=== PATIENT | male | born 1930 | race Caucasian/White ===

== ENCOUNTER 2020-07-12 08:18 | Emergency (ER) | payer OTHER ==
--- NOTE | 2020-07-12 08:49 | RAD REPORT ---
EXAM DESCRIPTION: CT - Head Brain Wo Cont - 07/12/2020 8:36 am CLINICAL HISTORY: CVA COMPARISON: 2018 TECHNIQUE: Computed axial tomography of the head was obtained. IV contrast was not requested. All CT scans are performed using dose optimization technique as appropriate and may include automated exposure control or mA/KV adjustment according to patient size. FINDINGS: An intracranial bleed is not seen . The ventricles are normal in caliber. No extra-axial fluid collection is noted. A 4 centimeter low-density area has developed within the le ft frontal lobe compatible with an acute infarction Mild low-density areas within periventricular, deep and subcortical white matter likely represent isc hemic changes secondary to small vessel disease. Fluid within the sinuses/ mastoids is not seen. IMPRESSION: Acute left frontal lobe infarction. The exam was discussed with Dr. Bajwa in the Emergency Room 8:27 a.m. July 12, 2020
[2020-07-12 08:51] LABS: Absolute Lymphocytes (CBC) 0.5 K/uL (0.7-4.9); Basophils % 0.3 % (0-1.3); Hematocrit 38.7 % (39.6-49.0); Lymphocytes % 5.2 % (15.3-44.8); MPV 8.8 fL (7.6-11.3); RBC Red Blood Cell Count 4.08 M/uL (4.33-5.43)
--- NOTE | 2020-07-12 09:14 | RAD REPORT ---
EXAM DESCRIPTION: CTHead angio07/12/2020 9:03 am CLINICAL HISTORY: CVA COMPARISON: None TECHNIQUE: CT angiogram of the head was obtained. 3D MIPS reconstruction performed. All CT scans are performed using dose optimization technique as appropriate and may include automated exposure control or mA/KV adjustment according to patient size. FINDINGS: The basilar, internal carotid, anterior cerebral, right middle cerebral and posterior cere bral arteries are normal caliber. An aneurysm is not seen. Diminished vascularity involves the anterior branches of the left middle cerebral artery A significant stenosis is not noted. IMPRESSION: Diminished vascularity involves the anterior branches of the left middle cerebral artery
--- NOTE | 2020-07-12 09:30 | RAD REPORT ---
EXAM DESCRIPTION: Suzi Single View07/12/2020 9:11 am CLINICAL HISTORY: Atrial fibrillation/weakness COMPARISON: 2018 FINDINGS: The lungs are hyperaerated. The lungs appear clear of acute infiltrate. The heart is mildly enlarged The radiopaque densities overlie the right arm which may represent contrast
[2020-07-12 09:32] LABS: Protime INR 1.56
[2020-07-12 09:36] LABS: Blood Morphology Comment NOT SEEN (NOT SEEN); Platelet Estimate ADEQ; Platelets, Giant RARE
[2020-07-12] MEDS ORDERED: ASPIRIN 325 MG TAB ONE (09:45)
--- NOTE | 2020-07-12 09:54 | ER ---
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 Unknown onset of symptoms, unknown of when pt went to bed. BS-97 18G R AC. Coronavirus screen: At this time, unable to obtain information related to travel outside the [place] Ebola Screen: Unable to complete the Ebola screening because: The patient is disoriented. No acute neurological deficit is noted. The patients blood glucose was checked before arriving to the hospital and was found to be normal. Initial Sepsis Screen: Does the patient meet any 2 criteria? No. Patient's initial sepsis screen is negative. Does the patient have a suspected source of infection? No. Patient's initial sepsis screen is negative. Risk Assessment: Do you want to hurt yourself or someone else? Unable to obtain. Onset of symptoms is unknown. 08:12 Method Of Arrival: EMS: [facility] sv 08:12 Acuity: CALVIN 2 sv Triage Assessment: 08:14 The onset of the patients symptoms was at an unknown time. General: Appears in no sv apparent distress. comfortable, slender, malnourished, Behavior is calm, cooperative, appropriate for age. Pain: Denies pain. Neuro: Level of Consciousness is awake, alert, Oriented to Pt able to answer some yes and no questions but is unable to follow all of the directions.. Heatset Winder Operator are weak on right Moves all extremities. Speech with expressive aphasia noted, pt unable to follow command to smile but is able to stick out his tongue midline. Cardiovascular: Patient's skin is warm and dry. Respiratory: Respiratory effort is even, unlabored, Respiratory pattern is regular, symmetrical. Derm: Skin is pink, warm \T\ dry. Musculoskeletal: Range of motion: intact in all extremities. Stroke Activation: Symptom onset > 6 hours Physician: Stroke Attending; Name: ; Notified At: ; Arrived At: Physician: Chief Stroke Resident; Name: ; Notified At: ; Arrived At: Physician: Stroke Resident; Name: ; Notified At: ; Arrived At: Physician: ED Attending; Name: ; Notified At: ; Arrived At: Physician: ED Resident; Name: ; Notified At: ; Arrived At: Historical: - Allergies: 08:23 Demerol; sv 08:23 ciprofloxacin; sv 08:23 levofloxacin; sv - PMHx: 08:23 Arthritis; Atrial Fib; Depression; TIA; sv - Immunization history:: Adult Immunizations unknown. - Social history:: Smoking status: unknown. Screenin:24 Abuse screen: Denies threats or abuse. Denies injuries from another. Nutritional sv screening: No deficits noted. Tuberculosis screening: No symptoms or risk factors identified. Fall Risk None identified. Assessment: 08:14 Reassessment: Dr Preciado at bedside. sv 08:14 Reassessment: Pt is unable to follow all commands during NIHHS scoring. sv 08:14 VAN Scoring: Arm Drift: Patients demonstrates NO arm weakness. Patient is VAN Negative. sv T-PA (Activase) Screening: Contraindications: Patient reports onset of signs and symptoms of stroke greater than 6 hours ago: Yes. 08:30 Patient has been NPO before screening. The patient is alert, and able to follow sv commands. The patient exhibits slurred or garbled speech. Provider notified of the indication for Speech Therapy consult. The patient is exhibiting difficulty speaking. Provider notified of the indication for Speech Therapy consult. The patient is exhibiting difficulty understanding words. The provider has been notified of the indication for a speech consult. The patient is able to swallow own secretions with no drooling or need for suction. The patient did not tolerate one teaspoon of water. Drooling, immediate coughing, gurgling, or clearing of the throat was noted. Bedside swallow screening discontinued. Patient kept NPO until cleared by Speech Therapy or Physician. The patient did not tolerate 90mL of water. Drooling, immediate coughing, gurgling, or clearing of the throat was noted. Bedside swallow screening discontinued. Patient kept NPO until cleared by Speech Therapy or Physician. The patient failed the bedside swallow screening. The patient will be kept NPO until cleared by Speech Therapy or Physician. Provider notified of bedside swallow screening results: Vickey Preciado MD. 08:57 Reassessment: Called Bryce (son) and he stated that he spoke with staff at [facility] where he lives and they stated that he was acting normal self walking and talking. Staff had walked with him around the [place] around 1800 yesterday. He is unsure of what time the pt went to sleep. 09:27 Reassessment: Dr Preciado on the phone speaking with Bryce (son) regarding results. sv 09:57 Reassessment: Patient appears in no apparent distress at this time. No changes from sv previously documented assessment. Patient and/or family updated on plan of care and expected duration. Pain level reassessed. 11:28 Reassessment: Patient appears in no apparent distress at this time. No changes from sv previously documented assessment. Patient and/or family updated on plan of care and expected duration. Pain level reassessed. 11:49 Reassessment: Report given to EMS. sv Vital Signs: 08:12 BP 163 / 126; Pulse 83; Resp 14; Pulse Ox 100% ; Pain 0/10; sv 08:35 BP 138 / 104; Pulse 64 MON; Resp 14; Pulse Ox 96% on R/A; sv 09:23 BP 135 / 66; Pulse 57 MON; Resp 14; Temp 97.8(O); Pulse Ox 96% on R/A; mh5 10:00 BP 128 / 71; Pulse 59; Resp 15; Pulse Ox 95% ; sv 10:56 BP 126 / 67; Pulse 56; Resp 14; Temp 97.7(O); Pulse Ox 94% on R/A; mh5 11:30 BP 115 / 31; Pulse 58; Resp 14; Pulse Ox 97% on R/A; sv 08:35 A fib sv 09:23 A fib mh5 Leandro Coma Score: 08:25 Eye Response: spontaneous(4). Verbal Response: inappropriate words(3). Motor Response: sv withdraws from pain(4). Total: 11. NIH Stroke Scale Scores: 08:14 NIHSS Score: 9 sv 09:45 NIHSS Score: 9 kdr ED Course: 08:12 Maintain EMS IV. Dressing intact. Site clean \T\ dry. Gauge \T\ site: 18G R AC. sv 08:14 potline monitor on. Pulse ox on. NIBP on. sv 08:[address] via stretcher. sv 08:18 Patient arrived in ED. sv 08:18 Jacqueline Patton RN is Primary Nurse. sv 08:21 Vickey Preciado MD is Attending Physician. kdr 08:22 Triage completed. sv 08:23 Arm band placed on. sv 08:24 Patient has correct armband on for positive identification. Placed in gown. Bed in low sv position. Call light in reach. Side rails up X2. 08:25 Patient moved back from CT. sv 08:35 Warm blanket given. Head of bed elevated. sv 08:35 Initial lab(s) drawn, by ED staff, sent to lab. sv 08:41 Initial lab(s) drawn, by me, sent to lab. mh5 08:44 EKG done, by ED staff, reviewed by Vickey Preciado MD. mh5 08:50 Basic Metabolic Panel Sent. sv 08:50 CBC with Diff Sent. sv 08:50 Protime (+inr) Sent. sv 08:50 Ptt, Activated Sent. sv 08:[address] via stretcher. sv 09:03 CT Head Angio In Process Unspecified. EDMS 09:11 Stroke CXR 1 View In Process Unspecified. EDMS 09:25 initiated a transfer with KEMAR Yu from the [facility]. eb 09:26 Manual Differential Sent. sv 09:29 CT Stroke Brain w/o Contrast Sent. sv 09:[address] Marina the neurologist guest relations representative for [facility] with Dr. Preciado for eb patient transfer consultation. 09:53 connected the hospitalist guest relations representative for [facility] with Dr. Preciado for patient eb transfer consultation. 09:[address] Preciado the fulfillment coordinator KEMAR Yu declined the patient in transfer due eb to being at capacity at [facility]. 10:03 initiated a transfer with Suni from the [facility]. eb 10:16 connected the neurologist guest relations representative for [facility] with Dr. Preciado for patient eb transfer consultation. 10:35 connected the stroke neurologist Dr. Coronado from [facility] with Dr. Ilana lilly for patient transfer consultation. 10:44 administrative approval given by Suni Navas Rn / patient has been accepted to [facility] ER/ Dr. Ivey has accepted the patient in transfer/ report to be called to [phone]. 11:27 [facility] called to brain picker patient for transportation. eb 11:27 No provider procedures requiring assistance completed. Patient transferred, IV remains sv in place. intact. Administered Medications: 09:57 CANCELLED (Physician Discretion): Aspirin 325 mg PO once sv 09:57 Drug: Aspirin Suppository 300 mg Route: RI; sv 11:27 Follow up: Response: No adverse reaction sv Point of Care Testing: Blood Glucose: 08:35 Blood Glucose: 106 mg/dL; sv Ranges: Outcome: 09:52 ER care complete, transfer ordered by . kdr 11:25 Transferred by ground EMS to [facility], Transfer form completed. X-rays sent sv w/ patient. Note: Report called to Chelsi [facility] 11:25 Condition: stable 11:25 Instructed on the need for transfer. 11:49 Patient left the ED. NIH Stroke Scale - NIH Stroke Score Date: 07/12/2020 Time: 08:14 Total Score = 9 1a. Level of Consciousness (LOC) - 0(Alert) 1b. Level of Consciousness (LOC) (Year \T\ Age) - 2(Neither) 1c. LOC Commands (Open \T\ Closes Eyes/Mixer Driver) - 1(One) 2. Best Gaze (Lateral Gaze Paresis) - 0(Normal) 3. Visual Field Loss - 0(No visual loss) 4. Facial Palsy - 2(Partial paralysis) 5a. Left Arm: Motor (10-second hold) - 0(No drift) 5b. Right Arm: Motor (10-second hold) - 0(No drift) 6a. Left Leg: Motor (5-second hold - always test supine) - 0(No drift) 6b. Right Leg: Motor (5-second hold - always test supine) - 0(No drift) 7. Limb Ataxia (finger/nose \T\ heel/odom - test with eyes open) - 0(Absent) 8. Sensory Loss (pinprick arms/legs/face) - 0(Normal) 9. Best Language: Aphasia (description/naming/reading) - 2(Severe aphasia) 10. Dysarthria (speech clarity - read or repeat words) - 2(Severe) 11. Extinction and Inattention (visual/tactile/auditory/spatial/personal) - 0(No abnormality) Initials: sv NIH Stroke Scale - NIH Stroke Score Date: 07/12/2020 Time: 09:45 Total Score = 9 1a. Level of Consciousness (LOC) - 0(Alert) 1b. Level of Consciousness (LOC) (Year \T\ Age) - 2(Neither) 1c. LOC Commands (Open \T\ Closes Eyes/Mixer Driver) - 1(One) 2. Best Gaze (Lateral Gaze Paresis) - 0(Normal) 3. Visual Field Loss - 0(No visual loss) 4. Facial Palsy - 2(Partial paralysis) 5a. Left Arm: Motor (10-second hold) - 0(No drift) 5b. Right Arm: Motor (10-second hold) - 0(No drift) 6a. Left Leg: Motor (5-second hold - always test supine) - 0(No drift) 6b. Right Leg: Motor (5-second hold - always test supine) - 0(No drift) 7. Limb Ataxia (finger/nose \T\ heel/odom - test with eyes open) - 0(Absent) 8. Sensory Loss (pinprick arms/legs/face) - 0(Normal) 9. Best Language: Aphasia (description/naming/reading) - 2(Severe aphasia) 10. Dysarthria (speech clarity - read or repeat words) - 2(Severe) 11. Extinction and Inattention (visual/tactile/auditory/spatial/personal) - 0(No abnormality) Initials: kdr Signatures: Dispatcher [employer] EDMS Jacqueline Patton RN RN sv Rittger, Kevin, MD MD kdr Martinez, [facility] Michaelle Doss Corrections: (The following items were deleted from the chart) 08:52 08:36 In radiology for Head Brain Wo Cont. EDMS EDMS 09:31 09:23 BP 135 / 66; Pulse 57bpm; Monitor: A fibResp 14bpm; Pulse Ox 96% RA; sv 5
--- NOTE | 2020-07-12 09:54 | EDPHYS ---
Physician Documentation [facility] Name: Constantin Ya Age: 89 yrs Sex: Male : 1930 Arrival Date: 07/12/2020 Time: 08:18 Bed 4 Private MD: ED Physician Vickey Preciado HPI: 07/12 10:51 This 89 yrs old Male presents to ER via EMS with complaints of Weakness, kdr Aphasia. 10:51 The patient presents to the emergency department with weakness of the right upper kdr extremity, that is mild, right side of the face, a speech or higher order brain function problem, aphasia, that is marked, a swallowing problem, unable. Onset: The symptoms/episode began/occurred at an unknown time. LAST KNOWN WELL: 6:00 PM YESTERDAY. Context: occurred at home. Associated signs and symptoms: The patient has no apparent associated signs or symptoms. Severity of symptoms: At their worst the symptoms were moderate incapacitating just prior to arrival, in the emergency department the symptoms have improved markedly. Patient's baseline: Neuro: alert and fully oriented, Motor: no deficits, Ambulation: walks without assistance, Speech: normal for age, The patient has a previous history of TIA. Current symptoms: confusion, Primarily right arm and right face paralysis. The patient has not experienced similar symptoms in the past. The patient has not recently seen a physician. Historical: - Allergies: 08:23 Demerol; sv 08:23 ciprofloxacin; sv 08:23 levofloxacin; sv - PMHx: 08:23 Arthritis; Atrial Fib; Depression; TIA; sv - Immunization history:: Adult Immunizations unknown. - Social history:: Smoking status: unknown. ROS: 10:51 Constitutional: Negative for fever, chills, and weight loss, Eyes: Negative for injury, kdr pain, redness, and discharge, ENT: Negative for injury, pain, and discharge, Neck: Negative for injury, pain, and swelling, Cardiovascular: Negative for chest pain, palpitations, and edema, Respiratory: Negative for shortness of breath, cough, wheezing, and pleuritic chest pain, Abdomen/GI: Negative for abdominal pain, nausea, vomiting, diarrhea, and constipation, Back: Negative for injury and pain, : Negative for injury, bleeding, discharge, and swelling, MS/Extremity: Negative for injury and deformity, Skin: Negative for injury, rash, and discoloration, Psych: Negative for depression, anxiety, suicide ideation, homicidal ideation, and hallucinations, Allergy/Immunology: Negative for hives, rash, and allergies, Endocrine: Negative for neck swelling, polydipsia, polyuria, polyphagia, and marked weight changes, Hematologic/Lymphatic: Negative for swollen nodes, abnormal bleeding, and unusual bruising. 10:51 Neuro: Positive for weakness, of the forehead, right cheek, right jaw and right arm. Exam: 10:12 ECG was reviewed by the Attending Physician. kdr 12:03 Constitutional: This is a well developed, well nourished patient who is awake, alert, kdr and in no acute distress. Head/Face: Normocephalic, atraumatic. Eyes: Pupils equal round and reactive to light, extra-ocular motions intact. Lids and lashes normal. Conjunctiva and sclera are non-icteric and not injected. Cornea within normal limits. Periorbital areas with no swelling, redness, or edema. Neck: Trachea midline, no thyromegaly or masses palpated, and no cervical lymphadenopathy. Supple, full range of motion without nuchal rigidity, or vertebral point tenderness. No Meningismus. Chest/axilla: Normal chest wall appearance and motion. Nontender with no deformity. No lesions are appreciated. Cardiovascular: Regular rate and rhythm with a normal S1 and S2. No gallops, murmurs, or rubs. Normal PMI, no JVD. No pulse deficits. Respiratory: Lungs have equal breath sounds bilaterally, clear to auscultation and percussion. No rales, rhonchi or wheezes noted. No increased work of breathing, no retractions or nasal flaring. Abdomen/GI: Soft, non-tender, with normal bowel sounds. No distension or tympany. No guarding or rebound. No evidence of tenderness throughout. Back: No spinal tenderness. No costovertebral tenderness. Full range of motion. Skin: Warm, dry with normal turgor. Normal color with no rashes, no lesions, and no evidence of cellulitis. MS/ Extremity: Pulses equal, no cyanosis. Neurovascular intact. Full, normal range of motion. Psych: Awake, alert, with orientation to person, place and time. Behavior, mood, and affect are within normal limits. 12:03 Neuro: Orientation: unable to test, Mentation: The patient seems confused and appears to have both receptive and expressive aphagia. Vital Signs: 08:12 BP 163 / 126; Pulse 83; Resp 14; Pulse Ox 100% ; Pain 0/10; sv 08:35 BP 138 / 104; Pulse 64 MON; Resp 14; Pulse Ox 96% on R/A; sv 09:23 BP 135 / 66; Pulse 57 MON; Resp 14; Temp 97.8(O); Pulse Ox 96% on R/A; mh5 10:00 BP 128 / 71; Pulse 59; Resp 15; Pulse Ox 95% ; sv 10:56 BP 126 / 67; Pulse 56; Resp 14; Temp 97.7(O); Pulse Ox 94% on R/A; mh5 11:30 BP 115 / 31; Pulse 58; Resp 14; Pulse Ox 97% on R/A; sv 08:35 A fib sv 09:23 A fib mh5 NIH Stroke Scale Scores: 08:14 NIHSS Score: 9 sv 09:45 NIHSS Score: 9 kdr [place] Coma Score: 08:25 Eye Response: spontaneous(4). Verbal Response: inappropriate words(3). Motor Response: sv withdraws from pain(4). Total: 11. MDM: 09:52 Patient medically screened. kdr 12:03 Data reviewed: vital signs, nurses notes, lab test result(s), EKG, radiologic studies. kdr Counseling: I had a detailed discussion with the patient and/or guardian regarding: the historical points, exam findings, and any diagnostic results supporting the discharge/admit diagnosis, lab results, radiology results, the need for outpatient follow up. 07/12 08:42 Order name: Basic Metabolic Panel; Complete Time: 09:20 kdr 07/12 08:42 Order name: CBC with Diff; Complete Time: 09:55 kdr 07/12 08:42 Order name: Protime (+inr); Complete Time: 09:36 kdr 07/12 08:42 Order name: Ptt, Activated; Complete Time: 09:36 kdr 07/12 08:52 Order name: Glucose, Ancillary Testing; Complete Time: 09:20 EDMS 07/12 09:05 Order name: Manual Differential; Complete Time: 09:55 EDMS 07/12 08:42 Order name: CT Stroke Brain w/o Contrast kdr 07/12 08:42 Order name: Stroke CXR 1 View; Complete Time: 09:36 kdr 07/12 08:42 Order name: EKG; Complete Time: 08:43 kdr 07/12 08:43 Order name: CT Head Angio; Complete Time: 09:20 kdr 07/12 08:49 Order name: CT; Complete Time: 09:20 EDMS 07/12 08:42 Order name: Accucheck; Complete Time: 08:42 kdr 07/12 08:42 Order name: Cardiac monitoring; Complete Time: 08:42 kdr 07/12 08:42 Order name: EKG - Nurse/Tech; Complete Time: 08:42 kdr 07/12 08:42 Order name: IV Saline Lock; Complete Time: 08:43 kdr 07/12 08:42 Order name: Labs collected and sent; Complete Time: 08:43 kdr 07/12 08:42 Order name: NPO; Complete Time: 08:50 kdr 07/12 08:42 Order name: O2 Per Protocol; Complete Time: 08:50 kdr 07/12 08:42 Order name: O2 Sat Monitoring; Complete Time: 08:50 kdr 07/12 08:42 Order name: Stroke Swallow Screen; Complete Time: 08:50 kdr EC:12 Rhythm is irregularly irregular, A fib with No ectopy. QRS [place] is Normal. [place] interval kdr is normal. QRS interval is normal. QT interval is normal. No Q waves. Clinical impression: Atrial Fibrillation and No evidence of ischemia. Administered Medications: 09:57 CANCELLED (Physician Discretion): Aspirin 325 mg PO once sv 09:57 Drug: Aspirin Suppository 300 mg Route: [place]; sv 11:27 Follow up: Response: No adverse reaction sv Point of Care Testing: Blood Glucose: 08:35 Blood Glucose: 106 mg/dL; sv Ranges: Critical Glucose Levels:Adult <50 mg/dl or >400 mg/dl <40 mg/dl or >180 mg/dl Disposition: 07/12/20 09:52 Transfer ordered to [facility]. 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 - Reason for transfer: Higher level of care. - Accepting physician is Dr. Gutierrez. - Condition is Fair. - Problem is new. - Symptoms are unchanged. NIH Stroke Scale - NIH Stroke Score Date: 07/12/2020 Time: 08:14 Total Score = 9 1a. Level of Consciousness (LOC) - 0(Alert) 1b. Level of Consciousness (LOC) (Year \T\ Age) - 2(Neither) 1c. LOC Commands (Open \T\ Closes Eyes/Garage Door Hanger) - 1(One) 2. Best Gaze (Lateral Gaze Paresis) - 0(Normal) 3. Visual Field Loss - 0(No visual loss) 4. Facial Palsy - 2(Partial paralysis) 5a. Left Arm: Motor (10-second hold) - 0(No drift) 5b. Right Arm: Motor (10-second hold) - 0(No drift) 6a. Left Leg: Motor (5-second hold - always test supine) - 0(No drift) 6b. Right Leg: Motor (5-second hold - always test supine) - 0(No drift) 7. Limb Ataxia (finger/nose \T\ heel/odom - test with eyes open) - 0(Absent) 8. Sensory Loss (pinprick arms/legs/face) - 0(Normal) 9. Best Language: Aphasia (description/naming/reading) - 2(Severe aphasia) 10. Dysarthria (speech clarity - read or repeat words) - 2(Severe) 11. Extinction and Inattention (visual/tactile/auditory/spatial/personal) - 0(No abnormality) Initials: NIH Stroke Scale - NIH Stroke Score Date: 07/12/2020 Time: 09:45 Total Score = 9 1a. Level of Consciousness (LOC) - 0(Alert) 1b. Level of Consciousness (LOC) (Year \T\ Age) - 2(Neither) 1c. LOC Commands (Open \T\ Closes Eyes/Garage Door Hanger) - 1(One) 2. Best Gaze (Lateral Gaze Paresis) - 0(Normal) 3. Visual Field Loss - 0(No visual loss) 4. Facial Palsy - 2(Partial paralysis) 5a. Left Arm: Motor (10-second hold) - 0(No drift) 5b. Right Arm: Motor (10-second hold) - 0(No drift) 6a. Left Leg: Motor (5-second hold - always test supine) - 0(No drift) 6b. Right Leg: Motor (5-second hold - always test supine) - 0(No drift) 7. Limb Ataxia (finger/nose \T\ heel/odom - test with eyes open) - 0(Absent) 8. Sensory Loss (pinprick arms/legs/face) - 0(Normal) 9. Best Language: Aphasia (description/naming/reading) - 2(Severe aphasia) 10. Dysarthria (speech clarity - read or repeat words) - 2(Severe) 11. Extinction and Inattention (visual/tactile/auditory/spatial/personal) - 0(No abnormality) Initials: kdr Signatures: Dispatcher [employer] EDJacqueline Arias RN RN Vickey Preciado MD MD kdr Corrections: (The following items were deleted from the chart) 08:52 08:36 Head Brain Wo Cont ordered. EDMS EDMS 09:57 09:25 Aspirin 325 mg PO once ordered. kdr sv 09:57 09:57 Aspirin 325 mg PO once ordered. sv 10:50 09:52 07/12/2020 09:[address] [facility]. Diagnosis is CVA. Reason for transfer: Higher level of care. Accepting physician is Dr. Farooq. Condition is Fair. Problem is new. Symptoms are unchanged. kdr 11:49 10:50 07/12/2020 09:52 Transfer ordered to [facility]. 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 Reason for transfer: Higher level of care. Accepting physician is Dr. Gutierrez. Condition is Fair. Problem is new. Symptoms are unchanged. kdr
[2020-07-12] MEDS ORDERED: ASPIRIN 600 MG/SUPP PR ONE (10:07)
[2020-07-12 11:57] VITALS: TEMP 97.7
[2020-07-12 11:59] VITALS: BP 115/31; O2SAT 97
--- NOTE | 2020-07-13 13:31 | EKG ---
Test Date: 2020-07-12 Test Time: 08:28:42 Box Truck Owner Operator: TYLER MEASUREMENT RESULTS: Intervals: Rate: 65 [place]: QRSD: 110 QT: 432 QTc: 449 [place]: P: [place]: QRS: 79 T: 88 INTERPRETIVE STATEMENTS: Atrial fibrillation Incomplete right bundle branch block Cannot rule out Anteroseptal infarct, age undetermined ST & T wave abnormality, consider lateral ischemia Abnormal ECG Compared to ECG 07/15/2017 12:50:02 Myocardial infarct finding now present ST (T wave) deviation now present T-wave abnormality no longer present Possible ischemia still present Electronically Signed On 07-13-20 13:28:26 MERCHANDISE MARKER by Sharan Abarca
== END 2020-07-12 11:49 | disposition short-term general hospital (02) ==
LOC: ER 08:18
DX: I63.9 Cerebral infarction, unspecified (principal); R47.01 Aphasia; R29.709 NIHSS score 9; Z86.73 Personal history of transient ischemic attack (TIA), and cerebral infarction without residual deficits; Z88.3 Allergy status to other anti-infective agents; Z88.5 Allergy status to narcotic agent
CPT/HCPCS: 93005; 85025; 80048; 36415; 85610; 82565; 82947; 85730; 70496; 70450; 71045; 99285; Q9967